=== PATIENT | male | born 1935 | race Caucasian/White ===

== ENCOUNTER → 2016-11-01 10:12 | Outpatient (CLI) | payer MEDICARE, OTHER | END | disposition home or self-care (01) | LOC: D.CT 10:12 | DX: I73.9 Peripheral vascular disease, unspecified (principal) ==

== ENCOUNTER 2016-11-30 10:40 | Outpatient (CLI) | payer MEDICARE, OTHER ==
[~2016-11-30] VITALS: Ht 182.9 cm; Wt 84.1 kg
--- NOTE | ~2016-11-30 | HEMODYNAMI ---
PATIENT:MARK VALE MEDICAL RECORD: [id number] : 33 LOCATION:[facility] ADMISSION DATE: 11/30/16 Generatedon:11/30/201613:42 Patient name: MARK VALE Patient #: [id number] SSN: : 1935 Date of study: 11/30/2016 Page: Of Hemodynamic Procedure Report Patient Data Patient Demographics Procedure consent was obtained First Name: MARK Gender: Male Last Name: AKANKSHA : 1935 Middle Initial: A Age: 81 year(s) Patient #: [id number] Race: Additional ID: [id number] Contact details Address: [address] [place] [address] State: [place] City: [place] Zip code: [address] Past Medical History Allergies Allergen Reaction Date Comments Reported Sulfa drugs 11/30/2016 Other allergy 11/30/2016 Celebrex, Topamax Admission Admission Data Admission Date: 11/30/2016 Admission Time: 10:40 Procedure Procedure Types Cath Procedure Miscellaneous Procedures Moderate Sedation up to 30 minutes Peripheral Cath Diagnostic Procedure Cath Peripheral Wougs-Vlaqimg-Hdg-Off Procedure Description Procedure Date Procedure Date: 11/30/2016 Procedure Start Time: 13:26 Procedure End Time: 13:40 Procedure Staff Name Function Kishore Wren MD Performing Physician Conner Mims RT Scrub Levon Reeves RN Nurse Esthela Rosenbaum RT Monitor Procedure Data Cath Procedure Fluoroscopy Diagnostic fluoroscopy Total fluoroscopy Time: 1.9 time: 1.9 min min Diagnostic fluoroscopy Total fluoroscopy dose: 155 dose: 155 mGy mGy Contrast Material Contrast Material Type Amount (ml) Isovue 300 66 Entry Location Entry Primary Successful Side Size Upsize Upsize Entry Closure Succes sful Closure Location (Fr) 1 (Fr) 2 (Fr) Remarks Device Remarks Femoral Right 5 Fr Exoseal artery Estimated blood loss: 5 ml Diagnostic catheters Device Type Used For End Catheter Placement Cordis Tempo 5Fr UF Abdominal catheter aortogram with runoff Diagnostic Infinity 5Fr Lower extremity IM catheter arteriography Procedure Complications No complications Procedure Medications Medication Administration Route Dosage Oxygen NC 2 l/min Heparin Flush Bag added to field 2 bags (1000units/500ml NS) 0.9% NaCl I.V. 100 ml/hr Fentanyl I.V. 50 mcg Versed I.V. 1 mg Fentanyl I.V. 50 mcg Versed I.V. 1 mg Hemodynamics Rest Heart Rate: 58 (bpm) Snapshots Pre Cath Intra NCS Post Cath Vital Signs Time Heart Resp SPO2 etCO2 [id number] NIBP (mmHg) Rhythm Pain Sedation Rate (ipm) (%) (mmHg) (mmHg) Status Level (bpm) 13:09:07 64 18 98 0 0 151/85(128) NSR 0 (11) 10(A) , No pain 13:13:25 53 18 98 0 0 166/75(130) NSR 0 (11) 10(A) , No pain 13:18:24 55 16 96 0 0 Measuring NSR 0 (11) 10(A) , No pain 13:18:38 57 17 95 0 0 147/70(121) NSR 0 (11) 9(A) , No pain 13:22:54 58 18 94 0 0 150/73(117) NSR 0 (11) 9(A) , No pain 13:27:15 58 17 95 0 0 150/67(117) NSR 0 (11) 9(A) , No pain 13:31:35 60 18 93 0 0 144/68(117) NSR 0 (11) 9(A) , No pain 13:35:55 65 17 93 0 0 133/63(113) NSR 0 (11) 9(A) , No pain 13:40:07 64 18 92 0 0 138/73(110) NSR 0 (11) 9(A) , No pain Medications Time Medication Route Dose Verified Delivered Reason Notes Effec tiveness by by 13:08:22 Oxygen NC 2 Levonrudi Aritay Per l/min Leandro Reeves RN physician RN 13:08:36 Heparin Flush added 2 Levon Dos Santos used for Bag to bags Leandro Reeves RN procedure (1000units/500ml field RN NS) 13:08:47 0.9% NaCl I.V. 100 Levon Levon Per ml/hr Leandro Reeves RN physician RN 13:16:22 Fentanyl I.V. 50 Levon Dos Santos for [facility] Leandro Reeves RN sedation RN 13:16:30 Versed I.V. 1 mg Levon Dos Santos for Leandro Reeves RN sedation RN 13:23:46 Fentanyl I.V. 50 Levon Dos Santos for [facility] Leandro Reeves RN sedation RN 13:23:53 Versed I.V. 1 mg Levon Dos Santos for Leandro Reeves RN sedation artists[employer] model Log Time Note 12:41:29 Time tracking: Regular hours 12:41:33 Plan of Care:Hemodynamics will remain stable., Cardiac rhythm will remain stable., Comfort level will be maintained., Respiratory function will remain adequate., Patient/ family verbilizes understanding of procedure., Procedure tolerated without complication., Recovers from procedure without complications.. 12:44:19 Levon Reeves RN sent for patient. Start room use. 13:00:08 Patient received from Pre/Post Procedure Room to CCL 1 Alert and oriented. Tansferred to table in Supine position. 13:00:09 Warm blankets applied, and nader hugger turned on for patient comfort. 13:00:09 Correct patient and procedure confirmed by team. 13:00:11 Signed procedure consent form obtained from patient. 13:00:11 ECG and BP/O2 sat monitors applied to patient. 13:00:12 Full Disclosure recording started 13:07:59 Vital chart was started 13:08:22 Oxygen 2 l/min NC was administered by Levon Reeves RN; Per physician; 13:08:36 Heparin Flush Bag (1000units/500ml NS) 2 bags added to field was administered by Levon Reeves RN; used for procedure; 13:08:47 0.9% NaCl 100 ml/hr I.V. was administered by Levon Reeves RN; Per physician; 13:10:00 Rhythm: sinus rhythm 13:10:10 H&P Date Dictated: 11/10/2016 Within 30 days and on chart., H&P Addendum completed by physician on day of procedure. (MUST COMPLETE FOR ALL OUTPATIENTS). 13:10:12 Pre-procedure instructions explained to patient. 13:10:12 Pre-op teaching completed and patient verbalized understanding. 13:10:13 Family in waiting room. 13:10:15 Patient NPO since Midnight. 13:10:27 Patient allergic to Sulfa drugs 13:10:50 Patient allergic to Other allergyCelebrex, Topamax 13:10:52 Is the patient allergic to Iodine/contrast media? No. 13:10:53 Is patient on blood thinner?No 13:10:56 Patient diabetic? No. 13:10:58 Previous problem with sedation/anesthesia? No ? 13:11:00 Snore? Yes 13:11:03 Sleep apnea? Yes 13:11:04 Deviated septum? No 13:11:06 Opens mouth fully? Yes 13:11:07 Sticks out tongue? Yes 13:11:09 Airway obstruction? No ? 13:11:14 Dentures? Yes Out 13:11:19 Pre procedure: right dorsailis pedis pulse 1+ Palpable, but thready & weak; easily obliterated 13:11:21 Pre procedure: left dorsailis pedis pulse 1+ Palpable, but thready & weak; easily obliterated 13:11:23 Patient pain scale 0/10 ?. 13:11:28 IV patent on arrival in left hand with 0.9% NaCl at [facility]. 13:11:38 Lab results completed and on chart. 13:11:41 Bilateral groins area was prepped with chlora-prep and draped in sterile fashion 13:11:42 Alarms reviewed by R. N. 13:11:42 Sharps counted by scrub and verified by R.N. 13:11:47 Acist Syringe opened to sterile field. 13:11:48 Bag Decanter opened to sterile field. 13:11:48 Medline Cath Pack opened to sterile field. 13:11:49 Terumo 5Fr Crosby Sheath opened to sterile field. 13:11:49 St Randell 260cm J .035 wire opened to sterile field. 13:11:51 Acist Hand Control opened to sterile field. 13:11:52 Acist Manifold opened to sterile field. 13:11:53 Tegaderm 4 x 4 opened to sterile field. 13:15:19 Final Timeout: patient, procedure, and site verified with staff and physician. All members of the team are in agreement. 13:15:22 Right groin site verified by team. 13:15:25 Physical assessment completed. ASA score P 2 - A patient with mild systemic disease as per Kishore Wren MD. 13:15:28 Sedation plan: IV Moderate Sedation Versed, Fentanyl 13:16:22 Fentanyl 50 mcg I.V. was administered by Lveon Reeves RN; for sedation; 13:16:30 Versed 1 mg I.V. was administered by Levon Reeves RN; for sedation; 13::58 Baseline sample Acquired. 13:23:46 Fentanyl 50 mcg I.V. was administered by Levon Reeves RN; for sedation; 13::53 Versed 1 mg I.V. was administered by Levon Reeves RN; for sedation; 13:26:40 Procedure started. 13::53 Local anesthetic to right femoral artery with Lidocaine 2% by Kishore Wren MD.INITIAL ACCESS ONLY 13:27:17 A 5 Fr sheath was inserted into the Right Femoral artery 13::58 A Cordis Tempo 5Fr UF catheter was advanced over the wire and used for Abdominal aortogram with runoff. 13:30:45 Catheter exchanged over wire. 13:31:48 A Diagnostic Infinity 5Fr IM catheter was advanced over the wire and used for Lower extremity arteriography. Catheter advanced to LSFA 13:34:51 Catheter removed. 13:35:01 Sheath removed intact; hemostasis achieved with Exoseal to the Right Femoral artery. 13:35:11 Cordis 5Fr Exoseal opened to sterile field. 13:35:13 Procedure ended.(Physican Out) :35:58 Fluoroscopy time 01.90 minutes. 13:36:03 Flurop Dose total: 155 13:36:03 Fluoroscopy dose: 155 mGy 13:36:13 Contrast amount:Isovue 300 66ml. 13:36:14 Sharps counted by scrub and verified by R.N. 13:36:16 Insertion/operative site no bleeding no hematoma. 13:36:18 Post-op/insertion site Right Femoral artery dressed using a 4 x 4 and Tegaderm. 13:36:23 Post right femoral artery:stable, clean and dry 13:36:30 Post Procedure Pulses reassessed and unchanged 13:36:37 Post-procedure physical assessment completed. ASA score P 2 - A patient with mild systemic disease as per Kishore Wren MD. 13:36:39 Post procedure rhythm: unchanged. 13:36:41 Estimated blood loss: 5 ml 13:36:42 Post procedure instruction explained to patient.Patient verbalizes understanding. 13:36:42 Patient needs reinforcement of post procedure teaching. 13:36:56 Procedure type changed to Cath procedure, Miscellaneous Procedures, Moderate Sedation up to 30 minutes, Peripheral Cath Diagnostic Procedure, Cath Peripheral, Tvudi-Eawxkvu-Fvg-Off 13:37:01 Procedure Complication : No complications 13:37:02 See physician's report for complete and final results. 13:38:06 Procedure and supply charges have been captured, reviewed, submitted and are correct. 13:40:23 Vital chart was stopped 13:40:26 Report given to Pre/Post Procedure Room. 13:40:29 Patient transfered to Pre/Post Procedure Room with Stretcher. 13:40:39 Procedure ended. 13:40:39 Full Disclosure recording stopped 13:40:43 End room use (Document Last) Device Usage Item Name Manufacture Quantity Catalog Hospital Part Current Minimal Lo t# / Number Charge Number Stock Stock Serial# Code Acist Acist 1 [id number] [id number] [id number] 20 Syringe [employer] Bag Microtek 1 2002S [id number] 10692 [id number] 5 Decanter [employer]. Medline Cardinal 1 [id number] 754853 14627 652243 5 Cath Pack Health Terumo 5Fr Terumo 1 [id number] [id number] 494945 827544 [address] St Randell 1 [id number] 520344 327748 172868 30 260cm J .035 wire Acist Hand Acist 1 76007 587415 298918 772193 5 Control [employer] Inc Acist Acist 1 25107 065182 713320 940251 5 Manifold [employer] Inc Tegaderm 4 3M 1 1626W 924257 972115 566946 5 x 4 Cordis Cardinal 1 [id number] 302532 118257 635381 10 Tempo 5Fr Health UF catheter Diagnostic Cardinal 1 [id number] 195510 399350 270757 5 Infinity Health 5Fr IM catheter Cordis 5Fr Cardinal 1 EX500 426815 299374 885997 10 BaseKit Signature Audit [place] Stage Time Signature Unsigned Intra-Procedure 11/30/2016 Esthela 1:42:04 PM Counts RT(R) Signatures Monitor : Esthela Signature : Counts RT Date : Time : [place] [id number] [place] [address]
--- NOTE | ~2016-11-30 | OP ---
PATIENT NAME: MARK VALE MEDICAL RECORD: [id number] :33 LOCATION:D.CAT ADMISSION DATE: SURGEON: CATALINA RUFFIN M.D. DATE OF OPERATION: 11/30/2016 REFERRING PHYSICIAN: Tigre Jovel MD. PROCEDURES PERFORMED: Aortofemoral runoff. INDICATION: An 81-year-old gentleman who presents with symptoms of leg pain. Recent CTA was suggestive of bilateral lower extremity disease below the knee. EQUIPMENT USED: A 5-Georgian UF catheter, mammary catheter. TECHNIQUE: A 5-Georgian sheath was inserted in retrograde fashion in the right common femoral artery. Next, a UF catheter was advanced to the level T12. Power injection was performed to visualize the distal aorta. Next, the catheter was pulled down to the level of bifurcation. Right lower extremity angiogram was then performed via UF catheter. Next, a mammary catheter was advanced over the bifurcation and placed into the left common femoral artery. At this point, injections were made ____ visualize the left lower extremity. FINDINGS: Distal aorta is somewhat ectatic. However, it is widely patent. Each kidney received a single arterial supply. There is no evidence of renal artery stenosis. Right common iliac artery is large in caliber and widely patent. The right common femoral artery is large in caliber and widely patent. Right superficial artery is large in caliber and widely patent. Right popliteal artery is large in caliber and widely patent. Below the knee, right anterior tibial artery appears to be occluded in the mid segment. However, the right peroneal and posterior tibial arteries are widely patent. Left common iliac artery is large in caliber and widely patent. Left common femoral artery is large in caliber and widely patent. Left superficial artery is large in caliber and widely patent. Left popliteal artery is large in caliber and widely patent. Below the knee, the left anterior tibial artery appears occluded in the proximal segment. However, the peroneal and left posterior tibial artery appear to be patent to the foot. 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 RECOMMENDATIONS: His symptoms to be more of discomfort above the knee. I think he is asymptomatic from below the knee. At this point, we will continue with medical treatment, it is adequate vascularization to his foot in the form of 2-vessel runoff bilaterally. TRANSINT:[id number] Voice Confirmation ID: [id number] DOCUMENT ID: [id number] OPERATIVE REPORT [id number] MARK VALE TIMOTHY E M.D. CC: [id number] DICTATION DATE: 11/30/16 1343 WEAVER AXMINSTER: 11/30/162044 DEP CLI 11/30/16 [place] [id number]
[2016-11-30] MEDS ORDERED: ATIVAN1 MG PO (11:09)
[2016-11-30] MEDS ORDERED: ZOLOFT100 MG PO (11:09)
[2016-11-30] MEDS ORDERED: LIPITOR20 MG PO (11:10)
[2016-11-30] MEDS ORDERED: RELAFEN750 MG PO (11:10)
[2016-11-30] MEDS ORDERED: ARICEPT10 MG PO (11:10)
[2016-11-30] MEDS ORDERED: CYCLOBENZAPRINE10 MG PO (11:11)
[2016-11-30 11:12] VITALS: BP 162/71; Ht 182.9 cm; Wt 84.1 kg
[2016-11-30 11:12] LABS: BASOPHILS 0.3 % (0-2); EOSINOPHILS 2.9 % (0-7); HEMATOCRIT 39.5 % (42.0-54.0); HEMOGLOBIN 13.9 g/dL (13.5-17.5); IMMATURE GRANULOCYTES 0.3 % (0-5); LYMPHOCYTES 18.6 % (15-50); MCH 33.1 pg (26.0-34.0); MCHC 35.2 g/dL (31.0-37.0); MEAN PLATELET VOLUME 11.8 fL (7.4-10.4); MONOCYTES 9.7 % (2-11); NEUTROPHILS 68.2 % (40-80); PLATELET COUNT 151 10x3/uL (130-400); RDW 13.2 % (11.5-14.5); WBC 7.9 10x3/uL (4.8-10.8)
[2016-11-30 11:27] LABS: CALC OSMOLALITY 282 mosm/kg (275-300); CALCIUM 8.8 mg/dL (8.5-10.1); CARBON DIOXIDE 27.9 mmol/L (21.0-32.0); CHLORIDE - SERUM 104 mmol/L (98-107); CREATININE - SERUM 0.8 mg/dL (0.6-1.3); GLUCOSE 109 mg/dL (74-106); POTASSIUM - SERUM 4.5 mmol/L (3.5-5.1); SODIUM 139 mmol/L (136-145); UREA NITROGEN 23 mg/dL (7-18); eGFR NON AFRICAN AMERICAN > 90 mL/min (90-120)
--- NOTE | 2016-11-30 14:09 | NUR ---
1350 RECEIVED PT FROM DIRECTOR AUTOMOTIVE. PT IS DROWSY, DENIES ANY C/O AT THIS TIME. DRESSING TO RIGHT GROIN IS CDI, NO BLEEDING OR HEMATOMA NOTED AT SITE. AREA IS SOFT AND NON-TENDER. PEDAL PULSES PALPABLE. AT BEDSIDE. PO FLUIDS SERVED. WILL CONTINUE TO MONITOR.
--- NOTE | 2016-11-30 14:13 | NUR ---
1405 RIGHT GROIN DRESSING REMAINS CDI, AREA IS SOFT AND NON-TENDER. PEDAL PULSES PALPABLE. PT STEVEN PO FLUIDS. AT BEDSIDE.
--- NOTE | 2016-11-30 14:35 | NUR ---
1435 PT DENIES ANY C/O. DRESSING REMAINS CDI TO RIGHT GROIN. PEDAL PULSES PALPABLE. AT BEDSIDE. PT STEVEN PO FLUIDS AND DENIES ANY C/O AT THIS TIME.
--- NOTE | 2016-11-30 15:09 | NUR ---
1510 PT DENIES ANY C/O. DRESSING TO RIGHT GROIN IS CDI, NO BLEEDING OR HEMATOMA NOTED. AREA IS SOFT AND NONTENDER. PEDAL PULSES PALPABLE, CAP REFILL IS BRISK.
--- NOTE | 2016-11-30 15:47 | NUR ---
1545 PT SITTING UP IN BED EATING SANDWICH. DENIES ANY C/O. AT BEDSIDE, CALL LIGHT IN REACH.
--- NOTE | 2016-11-30 16:27 | NUR ---
1600 DR RUFFIN HAS ROUNDED ON PATIENT. RIGHT GROIN DRESSING REMAINS CDI WITH NO BLEEDING OR HEMATOMA NOTED. AREA IS SOFT AND NONTENDER. PEDAL PULSES PALPABLE. PT HAS TOLERATED SANDWICH WITH NO C/O. IV DC'D WITH CATH INTACT. ASSISTED PT WITH DRESSING FOR DC TO HOME. 1620 DC INSTRUCTIONS HAVE BEEN REVIEWED, PT HAS AMBULATED TO THE BATHROOM AND VOIDED QS. GROIN REMAINS STABLE, NO BLEEDING OR HEMATOMA NOTED. PT ESCORTED TO PRIVATE AUTO VIA WC BY STAFF WITH DRIVING HIM HOME. PT DENIES ANY C/O AT DC. WRITTEN INSTRUCTIONS WITH PT'S .
== END 2016-11-30 16:20 | disposition home or self-care (01) ==
LOC: D.CATH 10:40
PROVIDERS: Internal Medicine Cardiovascular Disease
DX: I70.293 Other atherosclerosis of native arteries of extremities, bilateral legs (principal); Z01.812 Encounter for preprocedural laboratory examination

== ENCOUNTER → 2018-09-04 15:08 | Outpatient (CLI) | payer MEDICARE, OTHER ==
[2016-11-30 11:12] VITALS: BMI 25.1
[~2018-09-04 15:08] MED LIST: ARICEPT10 MG PO; ATIVAN1 MG PO; CYCLOBENZAPRINE10 MG PO; LIPITOR20 MG PO; RELAFEN750 MG PO; ZOLOFT100 MG PO
== END | disposition home or self-care (01) ==
LOC: D.US 15:00
PROVIDERS: ATTEND Family Medicine
DX: R09.89 Other specified symptoms and signs involving the circulatory and respiratory systems (principal)